=== PATIENT | female | born 1955 ===

== ENCOUNTER 2018-07-08 04:06 | Observation (INO) | payer MEDICARE, MEDICAID ==
--- NOTE | 2018-07-04 14:53 | NUR ---
VOICEMAIL LEFT FOR PT, INSTRUCTED PT ABOUT NEEDED A URINE SAMPLE FOR URINE TEST WITH LABS ON SUNDAY, AND IF ANY QUESTIONS PLEASE CALL THE [facility] OFFICE [phone]
[2018-07-07 15:32] LABS: INR 1.01
[2018-07-08] VITALS (11 sets, daily range): BP systolic 108–171; BP diastolic 63–96
[~2018-07-08] VITALS: Ht 170.2 cm; Wt 92.1 kg
[~2018-07-08 04:06] MED LIST: ASPI81TA94 PO; CHERRY PO; DULO60CA56 PO; METF-450 PO; VALS160T22 PO
[2018-07-08] MEDS ORDERED: ACETAMINOPHEN 500 MG TAB PO ONE (06:15)
[2018-07-08] MEDS ORDERED: ROPIVACAINE 0.2% 400 MG/200ML 250 ML CONINFUS ONE (06:15)
[2018-07-08] MEDS ORDERED: MIDAZOLAM 2 MG/2 ML VIAL IVP PRN (06:15)
[2018-07-08] MEDS ORDERED: NORMOSOL R SOLN(*) 1000 ML BAG 1,000 ML IV PRN ×2 (06:15→09:30)
[2018-07-08] MEDS ORDERED: LIDOCAINE/SOD BICARB 8.4% SYR ID ONE (06:15)
[2018-07-08] MEDS ORDERED: PREGABALIN 150 MG CAPSULE PO ONE (06:15)
[2018-07-08] MEDS ORDERED: TRANEXAMIC AC 1000 MG/10ML SDV 1,000 MG in DEXTROSE 5% 50 ML BAG 50 ML IV ONE (06:15)
[2018-07-08] MEDS ORDERED: CELECOXIB 200 MG CAP PO ONE (06:15)
[2018-07-08] MEDS ORDERED: ROPIVACAINE/EPI/CLONIDINE/KET 50 ML SYRINGE INJ ONE (06:15)
[2018-07-08] MEDS ORDERED: FAMOTIDINE 20 MG TAB PO ONE (06:15)
[2018-07-08] MEDS ORDERED: ceFAZolin(*) 2GM/D5W 50ML 50 ML IVPB ONE (06:15)
[2018-07-08] MEDS ORDERED: LIDOCAINE MPF 1% 5 ML VIAL ONE (06:42)
[2018-07-08] MEDS ORDERED: ONDANSETRON 4 MG/2 ML VIAL ONE (06:42)
[2018-07-08] MEDS ORDERED: fentaNYL CITR 100 MCG/2 ML AMP ONE (06:42)
[2018-07-08] MEDS ORDERED: DEXAMETHASONE SOD 4 MG/ML VIAL ONE (06:42)
[2018-07-08] MEDS ORDERED: PROPOFOL EMUL(*) 10MG/ML 20 ML 20 ML ONE (06:42)
[2018-07-08] MEDS ORDERED: KETAMINE HCL-NS 50 MG/5 ML SYR ONE (06:43)
[2018-07-08] MEDS ORDERED: GLYCOPYRROLATE 0.2MG/ML 1 ML INJ ONE (07:25)
[2018-07-08] MEDS ORDERED: HYDROmorphone HCL 2 MG/ML SDV ONE (07:52)
[2018-07-08] MEDS ORDERED: ROPIVACAINE 0.5% 20 ML VIAL ONE (07:52)
[2018-07-08] MEDS ORDERED: DESFLURANE 240 ML BTL INH ONE (08:18)
[2018-07-08] MEDS ORDERED: ROPIVACAINE 0.2% 20 ML VIAL ONE (08:43)
[2018-07-08] MEDS ORDERED: BISACODYL 10 MG SUPP PR PRN (09:30)
[2018-07-08] MEDS ORDERED: ONDANSETRON 4 MG/2 ML VIAL IVP PRN (09:30)
[2018-07-08] MEDS ORDERED: FLUSH 10 ML SYR IVP PRN (09:30)
[2018-07-08] MEDS ORDERED: ZOLPIDEM TARTRATE 5 MG TAB PO PRN (09:30)
[2018-07-08] MEDS ORDERED: MORPHINE 4 MG/ML SDV IVP PRN (09:30)
[2018-07-08] MEDS ORDERED: PROMETHAZINE 25 MG/ML 1 ML AMP IVP PRN (09:30)
[2018-07-08] MEDS ORDERED: MAGNESIUM HYDROXIDE* 30ML UDCP PO PRN (09:30)
[2018-07-08] MEDS ORDERED: KETOROLAC TROM 10MG TAB PO PRN (09:30)
--- NOTE | 2018-07-08 10:16 | RADIOLOGY IMAGING REPORT ---
FACILITY: [facility] PATIENT NAME: Ramona James : 1955 MR: [id number] V: [id number] EXAM DATE: ORDERING PHYSICIAN: FRANCO ANN TECHNOLOGIST: Location: [facility] [place] Patient: Ramona James : 1955 Visit/Account:[id number] Date of Sevice: 07/08/2018 Technique: KNEE LIMITED RIGHT HISTORY: POST-OP PLACEMENT Comparison studies: None FINDINGS: There is no acute fracture. Noted is a right knee arthroplasty. Medullary lucency within the proximal right tibia is noted which may be secondary to previous hardware. There is gross anatom ic alignment. Expected adjacent postoperative changes are noted. IMPRESSION: 1. Right knee arthroplasty without evidence of acute hardware complication. Report Dictated By: Dewey Oscar DO at 07/08/2018 10:10 AM Report E-Signed By: Dewey Oscar DO at 07/08/2018 10:11 AM WSN:[id number]
--- NOTE | 2018-07-08 10:49 | OPERATIVE REPORT 1 ---
EVENT DATE: July 08, 2018 SURGEON: Darrell Escobedo MD ANESTHESIOLOGIST: Nagi Smith MD ANESTHESIA: Right indwelling adductor block followed by general anesthesia. PRACTICE PHYSICIAN: Eulalio Marroquin PA-C PREOPERATIVE DIAGNOSIS Right knee degenerative joint disease. POSTOPERATIVE DIAGNOSIS Right knee degenerative joint disease. PROCEDURE PERFORMED Right total knee arthroplasty. IMPLANTS MicroPort medial pivot CS system with a 4 femur, 5 tibia, 14 mm CS insert, 8 x 32 symmetric patella. We utilized two packages of [employer]Joy [place] Blue cement and ZipLine Wound Closure System. We also utilized 50 cc of our standard Toradol/ropivacaine cocktail. SPECIMENS None. COMPLICATIONS None. BLOOD LOSS Less than 200 cc. OPERATION The patient received appropriate preoperative antibiotic, was brought to the OR, where Dr. Smith performed right adductor canal block followed by general anesthesia. Right thigh tourniquet placed but not utilized. Right lower extremity prepped and draped in the usual sterile fashion. Midline incision made followed by a medial parapatellar arthrotomy. I dissected subperiosteally along the medial tibial plateau to the level of the semimembranosus insertion. Fat pad was excised. Knee was brought up in hyperflexion and ACL and PCL released subperiosteally. Remaining articular cartilage was removed from the distal femoral condyle by sagittal saw. Step-cut drill was utilized to broach the femoral canal. We placed our distal intramedullary femoral cutting guide, setting this up at 10 mm, 6 degrees valgus. Care was taken to protect the soft tissue. Distal cut was made. 3-degree external rotation guide was then placed, referencing off the anterior flange, epicondyles and posterior condyles and femur sized to #4. We drilled 3-degree external rotation holes. Four-in-one cutting block was placed followed by Z-retractors to protect the soft tissue and made our four cuts. The tibia was then brought anteriorly on the femur with appropriate retractors. Step-cut drill was utilized to broach the tibial canal, followed by placement of our intramedullary tibial guide, which referenced for our slope. We then referenced for depth of cut off the lateral tibial plateau and then set up for rotation and pinned the block into place. Care was taken to protect the soft tissues. Tibial cut was made, sized to a #5. Remaining stump of the ACL, PCL, medial and lateral meniscus were removed by Bovie. Curved osteotome was utilized to elevate the posterior capsule. Appropriate retractors were placed. Tibial base plate was then positioned, referencing from the previous rotation and then pinned into place, starting with 12 mm insert and then moving up to 14 mm insert. We then placed our #4 femur. We achieved full extension, stability to varus/valgus stress and good endpoint and anterior drawer. The knee was brought in full extension. Patella was sized to 24 mm and utilizing 8 mm cutting guide this was cut down to 16 mm. Peg hole guide positioned inferiorly and medially. Peg holes drilled for 8 x 32 patella, which was then placed. Knee was brought into flexion. Peg holes drilled for the femur and placed and groove was cut for the trochlear chip, which was then placed. Again, we had the aforementioned range of motion and stability. Patella tracked well. Patella, femur and tibial insert were removed. Appropriate retractors were placed to set up for our tibial keel guide. This was then cut, reamed and punched and the instrumentation was then removed. Bone plug placed in the distal femur and copiously irrigated but pulse lavage while we mixed two packages of [employer] [place] blue cement. 10 cc of our cocktail were injected into the posterior capsule and then we placed the knee into appropriate position, starting at the tibia. This was cemented into place followed by 14 mm insert and then our #4 femur. Excess cement was removed. Knee was brought into full extension with axial compression while we cemented the patella. We then placed axial compression with posterior drawer applied and we injected the remaining 40 cc of our cocktail in distal quads. We copiously irrigated once again and after 13 minutes the cement had hardened. Again, we had the aforementioned range of motion and stability. Again, we copiously irrigated, placed the knee at 30 degrees, closed the arthrotomy with #2 Vicryl in [id number] suture fashion followed by 2-0 Vicryl for subcutaneous tissue and then cleaned the wound. We placed the knee at 45 degrees and placed our ZipLine Wound Closure System. Compressive dressing was applied. Patient was extubated and taken to recovery in stable condition. Hospitalist team to be consulted for medical management, anticoagulation, PT for rehab. Social Work for post discharge placement. TREVOR
--- NOTE | 2018-07-08 13:16 | NUR ---
Physical Therapy Impression PT eval complete. Pt able to perform supine>sit with SBA, sit<>stand CGA, and sit>supine with Min A. Attempted to ambulate/side step, Pt unable to bear weight through R LE with a knee buckle noted. CPM fitted and running 0-30 deg. Physical Therapy Goals 1. SBA bed mobility. 2. SBA transfers. 3. SBA gait x 150' with RW. 4. Independent use of CPM. Patient's Goals
--- NOTE | 2018-07-08 13:26 | Hospitalist Consultation ---
History of Present Illness Requesting Physician Dr. Escobedo Reason for Consult Medical Management of Comorbidities Chief Complaint s/p right knee replacement History of Present Illness She was admitted s/p right knee replacement. It is reported the surgery went well and without complication. History Problems: (1) Type 2 diabetes mellitus Status: Chronic (2) Hypertension Status: Chronic (3) CKD (chronic kidney disease) Status: Chronic Home Meds Reported Medications Aspirin (ASPIRIN) 81 Mg Tab.chew, 81 MG PO QDAY, TAB.CHEW 07/01/18 Duloxetine Hcl (CYMBALTA) 60 Mg Capsule.dr, 60 MG PO QDAY, #5 CAP 07/01/18 Valsartan (DIOVAN) 160 Mg Tablet, 160 MG PO QDAY 07/01/18 Metformin Hcl (METFORMIN HCL) 500 Mg Tablet, 1 TAB PO BID, TAB 07/01/18 Discontinued Reported Medications [[place]] No Conflict Check, 1 TAB PO BID 07/01/18 Allergies: Coded Allergies: No Known Drug Allergies (Unverified , 07/01/18) Patient History: FH: alcohol abuse MOTHER, Hx Smoking: Yes (OCC CIG DAILY(1)) Smoking Status: Current: Every Day Smoker Caffeine/Cups Per Day: NONE Hx Alcohol Use: No Hx Substance Use Disorder: No Social Drug Use: Never History of IV Drug Use: No Review of Systems All Systems Reviewed/Normal: Yes, Except as Noted Exam Vital Signs Vital Signs Date Time Temp Pulse Resp B/P (MAP) Pulse Ox O2 Delivery O2 Flow Rate FiO2 07/08/18 10:36 97.8 112 12 171/96 (121) 92 Nasal Cannula 2.0 General Appearance: Alert, Awake, No Acute Distress, Afebrile Neuro: No Gross deficits Cardiovascular: Regular Rate and Rhythm Respiratory: No Respiratory Distress, Clear to Auscultation Psych: Alert & Oriented X3, Appropriate Mood & Affect Assessment and Plan Problems: (1) Status post right knee replacement Status: Acute Assessment & Plan: Followed by Dr. Escobedo. She will be placed on Aspirin for DVT prophylaxis. (2) Hypertension Status: Chronic Assessment & Plan: Continue chronic Diovan with hold parameters. (3) Type 2 diabetes mellitus Status: Chronic Assessment & Plan: Continue chronic Metformin starting tomorrow. She also will be placed on SS insulin #1 and AC/HS blood glucose levels. (4) CKD (chronic kidney disease) Status: Chronic Assessment & Plan: Creatinine prior to surgery was 1.3. Will get BMP tomorrow. (5) UTI (urinary tract infection) Status: Acute Assessment & Plan: She had no symptoms prior to surgery. Had pre-operative UA which shows many squamous epi's, appears contaminated. She was placed on Keflex 500mg daily for 10 days starting 07/01/18. Had repeat UA prior to surgery which has many squamous epi, appears close to UA from PCP. Urine culture pending. At this time would not recommend treatment for UTI. She is receiving Ancef post- operatively which would treat UTI also. Venous Thromboembolism Antithrombotics Is Pt On Any Antithrombotics?: No Problem Qualifiers (1) Hypertension: Hypertension type: essential hypertension Qualified Codes: I10 - Essential (primary) hypertension CK YOUNGP July 08, 2018 13:26
[2018-07-08] MEDS: ceFAZolin(*) 2GM/D5W 50ML 50 ML IVPB SCH (14:58)
[2018-07-08] MEDS: ACETAMINOPHEN 500 MG TAB PO SCH (16:37)
[2018-07-08] MEDS: INSULIN HUM LISPRO 100 UN/ML 3 ML VIAL SUBQ PRN (16:37)
[2018-07-09] VITALS (7 sets, daily range): BP systolic 108–140; BP diastolic 60–75; Ht 170.2 cm; Wt 92.1 kg
[2018-07-09] MEDS: ceFAZolin(*) 2GM/D5W 50ML 50 ML IVPB SCH ×2 (00:34→06:22)
[2018-07-09] MEDS: ACETAMINOPHEN 500 MG TAB PO SCH ×3 (00:45→16:32)
[2018-07-09] MEDS: ASPIRIN 325 MG ENTERIC COATED PO SCH (08:35)
[2018-07-09] MEDS: VALSARTAN 80 MG TAB PO SCH (08:35)
[2018-07-09] MEDS: metFORMIN HCL 500 MG TAB PO SCH ×2 (08:35→20:38)
[2018-07-09] MEDS: DULoxetine HCL 30 MG CAPCR PO SCH (08:35)
[2018-07-09] MEDS: traMADol 50 MG TAB PO PRN ×2 (08:36→20:38)
--- NOTE | 2018-07-09 10:18 | NUR ---
Physical Therapy Impression Pt. w/ resolved drowsiness and no incidences of knee buckling today. Pt tf sit<>stand w/ CGA, cues for foot placement. Pt. ambulated 80 feet, w/ minimal difficulty and CGA. Demonstrated step through gait pattern and good weight acceptance. After ambulation, therex performed long siting in recliner. Therex: ankle pumps, glute sets, and quad sets, requiring verbal cues. SpO2 WNL on room air. Pt would benefit from further skilled PT care to improve strengthened functional mobility. Anticipate d/c with OP PT Physical Therapy Goals 1. SBA bed mobility. 2. SBA transfers. 3. SBA gait x 150' with RW. 4. Independent use of CPM. Patient's Goals
--- NOTE | 2018-07-09 10:22 | NUR ---
This Physical Therapist or Agricultural Service Technician was present for the entire physical therapy session directing the services, making the skilled judgement, and was not engaged in treating another patient or doing another task at the same time as the treatment session. Addendum: 07/09/18 at 1022 by SHAMA JEAN BAPTISTE PT Amended: Links added.
--- NOTE | 2018-07-09 10:36 | Hospitalist Progress Note ---
Subjective Progress Notes Subjective She was admitted s/p knee replacement. She has no complaints this morning. She had no acute events overnight. Patient Complains of: Cardiovascular: No: Chest Pain Respiratory: No: Shortness of Breath Physical Exam Vital Signs Date Time Temp Pulse Resp B/P (MAP) Pulse Ox O2 Delivery O2 Flow Rate FiO2 07/09/18 08:36 94 Room Air 07/09/18 07:14 98.0 62 108/60 (76) 07/09/18 05:32 16 07/09/18 02:18 1.0 Intake and Output 07/09/18 01:00 Intake Total 3290 ml Balance 3290 ml Intake Oral 240 ml IV Total 1550 ml Other 1500 ml # Voids 2 General Appearance: Alert, Awake, No Acute Distress, Afebrile Neuro: No Gross deficits Cardiovascular: Regular Rate and Rhythm Respiratory: No Respiratory Distress, Clear to Auscultation Psych: Alert & Oriented X3, Appropriate Mood & Affect Result Diagram: 07/09/18 0553 Assessment and Plan Problems: (1) Status post right knee replacement Status: Acute Assessment & Plan: Followed by Dr. Escobedo. She will be placed on Aspirin for DVT prophylaxis. (2) UTI (urinary tract infection) Status: Acute Assessment & Plan: She had no symptoms prior to surgery. Had pre-operative with PCP, UA which shows many squamous epi's, appears contaminated. She was placed on Keflex 500mg daily (per pt) for 10 days starting 07/01/18. Had repeat UA prior to surgery which has many squamous epi, appears close to UA from PCP. Urine culture pending growing gram negative jimmy. Will place patient on Rocephin until final culture results are back. (3) Hypertension Status: Chronic Assessment & Plan: Continue chronic Diovan with hold parameters. (4) Type 2 diabetes mellitus Status: Chronic Assessment & Plan: Continue chronic Metformin. She also will be placed on SS insulin #1 and AC/HS blood glucose levels. (5) CKD (chronic kidney disease) Status: Chronic Assessment & Plan: Creatinine prior to surgery was 1.3. Creatinine unchanged post-operatively. Exam Sepsis Risk: No Definite Risk Problem Qualifiers (1) Hypertension: Hypertension type: essential hypertension Qualified Codes: I10 - Essential (primary) hypertension CK YOUNG SALESPERSON SEWING MACHINES July 09, 2018 10:36
[2018-07-09] MEDS: oxyCODONE HCL 5 MG CAP PO PRN ×2 (11:27→16:32)
[2018-07-09] MEDS: INSULIN HUM LISPRO 100 UN/ML 3 ML VIAL SUBQ PRN ×2 (11:33→20:45)
--- NOTE | 2018-07-09 13:23 | NUR ---
Physical Therapy Impression Patient presents in bed and agrees to therapy. Patient educated on use of CPM and how to increase flexion on machine. Patient then transferred out of bed with CGA. Patient ambulated ~150 feet with FWW and CGA. Patient did not need a standing rest break and had slow antalgic gait. Upon return to room patient needed min A to lift surgical leg to get back into bed. Patient then was placed on CPM with a range of 0 to 30. Physical Therapy Goals 1. SBA bed mobility. 2. SBA transfers. 3. SBA gait x 150' with RW. 4. Independent use of CPM. Patient's Goals
[2018-07-09] MEDS: cefTRIAXone 1 GM VIAL IVP SCH (13:55)
[2018-07-10] MEDS: ACETAMINOPHEN 500 MG TAB PO SCH ×3 (01:11→17:06)
[2018-07-10 06:09] VITALS: BP 188/90
[2018-07-10] MEDS: traMADol 50 MG TAB PO PRN ×2 (06:15→20:55)
[2018-07-10 06:44] VITALS: BP 152/85
[2018-07-10] MEDS: VALSARTAN 80 MG TAB PO SCH (09:00)
[2018-07-10] MEDS: ASPIRIN 325 MG ENTERIC COATED PO SCH (09:00)
[2018-07-10] MEDS: DULoxetine HCL 30 MG CAPCR PO SCH (09:00)
[2018-07-10] MEDS: metFORMIN HCL 500 MG TAB PO SCH ×2 (09:00→20:55)
--- NOTE | 2018-07-10 10:09 | NUR ---
Occupational Therapy Impression Pt alert, returning from bathroom with nursing prior. Motivated to engage in OT tx and get moving. Prior to admission, pt reports independence with ADLs and IADLs (pet care (cat), cooking, and cleaning). Pt does not drive but utilizes friends or public transportation for grocery shopping. Pt reports ambulating with a cane prior to sx. Min A sit<>stand from chair with arms. CGA ambulation x25ft with RW. CGA stand<>sit with v/c's for safety and sequencing. CGA toileting. Max A LB dressing. SpO2 WNL on room air. Pt with no c/o of pain throughout tx. Recommend further rehab prior to discharge home in order to optimize independence and safety for ADLs/IADLs. Occupational Therapy Goals 1) Pt will be Min A LB dressing. 2) Pt will be SBA toilet task. 3) Pt will be educated on appropriate AE needs. Patient's Goal
--- NOTE | 2018-07-10 10:29 | NUR ---
Physical Therapy Impression Patient presents in room and agrees to therapy. Patient was CGA for STS from chair and cuing for forward weight shift. Patient instructed in gait training with FWW ~200 feet with CGA for safety. Patient needed cuing to stay close to walker and to stand tall. Patient needs improved strength, balance, and endurance to decrease ROF at home as she lives alone. Patient would benefit from ARU to receive therapy 5 days a week to improve ROM, build strength, and endurance to improve safety when she returns home and to improve quality of life when returning home being I with all ADL's. Patient is min A with bed mobility and min A with use of CPM. Physical Therapy Goals 1. SBA bed mobility. 2. SBA transfers. 3. SBA gait x 150' with RW. 4. Independent use of CPM. Patient's Goals
--- NOTE | 2018-07-10 10:47 | Hospitalist Progress Note ---
Subjective Progress Notes Subjective LUIS overnight, continues to progress with PT Physical Exam Vital Signs Date Time Temp Pulse Resp B/P (MAP) Pulse Ox O2 Delivery O2 Flow Rate FiO2 07/10/18 08:02 94 Nasal Cannula 1.0 07/10/18 06:44 98.9 76 24 152/85 (107) Intake and Output 07/10/18 07:00 Intake Total 900 ml Balance 900 ml Intake Oral 900 ml # Voids 5 General Appearance: Alert, Awake, No Acute Distress Cardiovascular: Normal Rhythm & Peripheral Pulses Respiratory: No Respiratory Distress Extremities: Soft and Non Tender, Warm, Pulses, Perfused Result Diagram: 07/09/18 0553 Assessment and Plan Problems: (1) Status post right knee replacement Status: Acute Assessment & Plan: Followed by Dr. Escobedo. She will be placed on Aspirin for DVT prophylaxis. (2) UTI (urinary tract infection) Status: Acute Assessment & Plan: She had no symptoms prior to surgery. Had pre-operative with PCP, UA which shows many squamous epi's, appears contaminated. She was placed on Keflex 500mg daily (per pt) for 10 days starting 07/01/18. Had repeat UA prior to surgery which has many squamous epi, appears close to UA from PCP. Urine culture pending growing gram negative jimmy. Will place patient on Rocephin until final culture results are back. (3) Hypertension Status: Chronic Assessment & Plan: Continue chronic Diovan with hold parameters. (4) Type 2 diabetes mellitus Status: Chronic Assessment & Plan: Continue chronic Metformin. She also will be placed on SS in sulin #1 and AC/HS blood glucose levels. (5) CKD (chronic kidney disease) Status: Chronic Assessment & Plan: Creatinine prior to surgery was 1.3. Creatinine unchanged post-operatively. Exam Sepsis Risk: No Definite Risk Problem Qualifiers (1) Hypertension: Hypertension type: essential hypertension Qualified Codes: I10 - Essential (primary) hypertension MELISSA JOEIVY DO July 10, 2018 10:46
[2018-07-10 11:00] VITALS: BP 194/94
[2018-07-10] MEDS: cefTRIAXone 1 GM VIAL IVP SCH (13:00)
--- NOTE | 2018-07-10 14:02 | NUR ---
Physical Therapy Impression Patient presents in room on CPM and is agreeable to therapy. Patient needed min A to help lower leg with supine to sit but was able to go sit to supine with SBA. Patient instructed in ambulation with FWW from room down the [place] with CGA and mod cues for posture, staying close to walker and weight shift onto right LE. Patient would benefit from ARU to improve strength and endurance with gait to be I with ADL's and to improve ROM. Physical Therapy Goals 1. SBA bed mobility. 2. SBA transfers. 3. SBA gait x 150' with RW. 4. Independent use of CPM. Patient's Goals
[2018-07-10 16:08] VITALS: BP 182/82
[2018-07-10 18:57] VITALS: BP 147/76
[2018-07-11 01:44] VITALS: BP 161/102
[2018-07-11] MEDS: ACETAMINOPHEN 500 MG TAB PO SCH ×2 (01:44→10:35)
[2018-07-11 06:38] VITALS: BP 167/93
--- NOTE | 2018-07-11 08:38 | NUR ---
Physical Therapy Impression Patient is SBA with STS transfers. Min A for bed mobility to lift R leg into bed. Patient ambulated ~ 214 feet CGA with one long seated rest break with cuing for posture. Patient demonstrates slow antalgic gait with step through. Patient is ready to d/c to ARU. Physical Therapy Goals 1. SBA bed mobility. 2. SBA transfers. 3. SBA gait x 150' with RW. 4. Independent use of CPM. Patient's Goals
[2018-07-11] MEDS ORDERED: ASPI-764 PO (09:16)
[2018-07-11] MEDS: metFORMIN HCL 500 MG TAB PO SCH (10:34)
[2018-07-11] MEDS: ASPIRIN 325 MG ENTERIC COATED PO SCH (10:34)
[2018-07-11] MEDS: DULoxetine HCL 30 MG CAPCR PO SCH (10:35)
[2018-07-11] MEDS: VALSARTAN 80 MG TAB PO SCH (10:37)
[2018-07-11] MEDS ORDERED: CEPH500T7 PO (10:41)
--- NOTE | 2018-07-11 10:44 | Hospitalist Progress Note ---
Subjective Progress Notes Subjective She was admitted s/p knee replacement. She has no complaints this morning. She plans to go to rehab unit today. Patient Complains of: Cardiovascular: No: Chest Pain Respiratory: No: Shortness of Breath Physical Exam Vital Signs Date Time Temp Pulse Resp B/P (MAP) Pulse Ox O2 Delivery O2 Flow Rate FiO2 07/11/18 07:37 95 Room Air 07/11/18 06:38 99.1 82 16 167/93 (117) 1.5 Intake and Output 07/11/18 07:00 Intake Total 1680 ml Balance 1680 ml Intake Oral 1680 ml # Voids 5 # Bowel Movements 1 General Appearance: Alert, Awake, No Acute Distress, Afebrile Neuro: No Gross deficits Cardiovascular: Regular Rate and Rhythm Respiratory: No Respiratory Distress, Clear to Auscultation GI: Soft and Non-Tender Psych: Alert & Oriented X3, Appropriate Mood & Affect Result Diagram: 07/09/18 0553 Assessment and Plan Problems: (1) Status post right knee replacement Status: Acute Assessment & Plan: Followed by Dr. Escobedo. She will be placed on Aspirin for DVT prophylaxis. (2) UTI (urinary tract infection) Status: Acute Assessment & Plan: She had no symptoms prior to surgery. Had pre-operative with PCP, UA which shows many squamous epi's, appears contaminated. She was placed on Keflex 500mg daily (per pt) for 10 days starting 07/01/18. Had repeat UA prior to surgery which has many squamous epi, appears close to UA from PCP. Urine culture pending growing quintana sensitive E. Coli. She received [address] patient on Keflex 500mg BID for 7 additional days. (3) Hypertension Status: Chronic Assessment & Plan: Continue chronic Diovan with hold parameters. (4) Type 2 diabetes mellitus Status: Chronic Assessment & Plan: Continue chronic Metformin. She also was placed on SS insulin #1 and AC/HS blood glucose levels. (5) CKD (chronic kidney disease) Status: Chronic Assessment & Plan: Creatinine prior to surgery was 1.3. Creatinine unchanged post-operatively. Exam Sepsis Risk: No Definite Risk Problem Qualifiers (1) Hypertension: Hypertension type: essential hypertension Qualified Codes: I10 - Essential (primary) hypertension CK YOUNGP July 11, 2018 10:44
[2018-07-11] MEDS ORDERED: CEPHALEXIN MONO 500 MG CAP PO ONE (11:00)
[2018-07-11] MEDS ORDERED: OXYC5CAP21 PO (11:18)
[2018-07-11] MEDS ORDERED: TRAM-420 PO (11:19)
--- NOTE | 2018-07-11 11:32 | NUR ---
OCCUPATIONAL THERAPY Dressing Assistance: Aakash Torres to fazal socks Dressing Aid Required: Bathing Assistance: Not completed Bathing Equipment: Home Assessment: Not Completed Feeding Assistance: Feeding Specialized Equipment: Toilet Use: CGA Verbalizes Needs: Yes Understands Precautions: Yes Cooperative: Yes Family Teaching: No Occupational Therapy Comment: Pt. will d/c to acute rehab for further rehab.
--- NOTE | 2018-07-11 12:00 | Antimicrobial Stewardship ---
Antimicrobial Stewardship Empiricly appropriate: Yes (UTI dx outpatient, was on oral abx) Support empiric regimen: Yes (Received Ancef post op, then ceftriaxone) Approriate Cultures done: Yes (UA with culture done prior to surgery) Gram stain show Microbs: Yes (GNR) Organism identified: Yes (Quintana sensitive ecoli) Review the antibiotic sensitiv: Yes (Quintana sensitive- ceftriaxone or ancef) IV to PO Opportunity: Yes Determine cumulative duration: Day 3 Determine standard duration: Complete 7-10 days Comment LATE ENTRY: 63 yo F who was admitted for a planned R TKA who was diagnosed with a UTI pre- op, started on keflex on 07/01/18 x 20 days, but based on report sounds like the patient was not taking it as directed so under-treated. Based on the potential for a partially treated UTI and new hardware from TKA, would recommend treatment regardless of symptoms. Symptoms may be masked by partial treatment. Urine Cx: >100,000cfu - e.coli quintana sensitive Abx: received Ancef post op, switched to ceftriaxone, will discharge on Keflex to complete a total of 7-10days, 7 more days. Estephanie Gandhi, PharmD, BCOP ESTEPHANIE GANDHI July 11, 2018 12:00
--- NOTE | 2018-07-11 13:35 | NUR ---
PHYSICAL THERAPY INFORMATION TRANSFER SHEET BED MOBILITY: Minimum Assistance TRANSFERS: Standby Assistance GAIT: 214 ' with RW and CGA Weightbearing Status: Weight bearing as yasmine STAIRS: with . EXERCISES: Verbalizes Needs: Yes Understands Directions Yes Cooperative: Yes Family Teaching: No Physical Therapy Comment:
--- NOTE | 2018-07-11 23:39 | DISCHARGE SUMMARY ---
DATE OF ADMISSION: July 08, 2018 DATE OF DISCHARGE: July 11, 2018 HOSPITAL COURSE Patient is a 63-year-old white female admitted to Day Surgery and underwent right total knee arthroplasty. Hospitalist team was consulted for medical management and anticoagulation, PT for rehabilitation. Discharge Planning was also consulted. Patient has no help at home, and perioperatively, she and her friend and I had discussed placement need for rehabilitation postoperatively. She progressed in a slow manner, but on day of discharge, wounds are clean, dry, and intact. Her pain was controlled, and she was a candidate for acute rehab. This has been arranged by the hospital team to be done in [place], her home town. She will continue protocol of physical therapy, CMP, and we will arrange followup in [place]. PRINCIPAL DIAGNOSIS Right knee degenerative joint disease. PRINCIPAL PROCEDURE Right total knee arthroplasty. TREVOR
== END 2018-07-11 11:16 | disposition short-term general hospital (02) ==
LOC: OR 04:06 → MED 10:35
PROVIDERS: ADMIT Orthopaedic Surgery; ATTEND Orthopaedic Surgery
DX: M17.11 Unilateral primary osteoarthritis, right knee (principal); E11.9 Type 2 diabetes mellitus without complications; F32.9 Major depressive disorder, single episode, unspecified; I12.9 Hypertensive chronic kidney disease with stage 1 through stage 4 chronic kidney disease, or unspecified chronic kidney disease; E11.22 Type 2 diabetes mellitus with diabetic chronic kidney disease; N18.9 Chronic kidney disease, unspecified; N39.0 Urinary tract infection, site not specified
CPT/HCPCS: 27447; 36415; 36416; 73560; 81001; 82948; 85610; 86850; 86900; 86901; 87077; 87088; 87186; 96372; 97116; 97161; 97165; 97530; A9270; C1713; C1776; G0378; J0696; J1100; J1170; J1815; J2001; J2250; J2405; J2704; J2795; J3010; J3490; J7060; 82310; 82374; 82435; 82565; 82947; 84132; 84295; 84520; J0690

== ENCOUNTER → 2018-07-11 | Outpatient (CLI) | payer MEDICARE, MEDICAID ==
[2018-07-09 10:16] VITALS: BMI 31.8
[~2018-07-11] MED LIST changes: +ASPI-764 PO; +CEPH500T7 PO; +OXYC5CAP21 PO; +TRAM-420 PO
== END ==
LOC: AMB 13:55
PROVIDERS: ATTEND Nurse Practitioner
DX: Z96.651 Presence of right artificial knee joint (principal)
CPT/HCPCS: A0425; A0429; A0428